=== PATIENT | female | born 1985 | race Two or more races ===

== ENCOUNTER 2025-01-09 21:47 | Emergency (ER) | payer MEDICARE, OTHER ==
[~2025-01-09] VITALS: Ht 165.1 cm; Wt 111.4 kg
[2025-01-09 21:51] VITALS: TEMP 97.8
[2025-01-09 22:18] LABS: URINE HCG POSITIVE (NEG)
[2025-01-09 22:20] LABS: MEAN PLATELET VOLUME 7.6 FL (7.4-10.4); RED CELL DISTRIBUTION WIDTH 16.3 % (11.5-14.5)
[2025-01-09 22:22] LABS: LEUKOCYTE ESTERASE ,URINE NEGATIVE (Neg); NITRITES, URINE NEGATIVE (Neg); OCCULT BLOOD,URINE NEGATIVE (Neg)
[2025-01-09 22:27] LABS: UA COLLECTION TYPE CLN CATCH MIDSTREAM
[2025-01-09 22:30] LABS: SQUAMOUS EPITHELIAL CELL,UR FEW /LPF (FEW)
[2025-01-09 22:31] LABS: CREATININE 0.66 MG/DL (0.40-0.90); TOTAL CARBON DIOXIDE 23.3 MMOL/L (24-32); eCRCL 103 ML/MIN; eGFR > 90 ML/MIN
--- NOTE | 2025-01-10 00:28 | Physician Documentation ---
History of Present Illness Chief Complaint: Abdominal Pain Stated Complaint: COMPLICATIONS Time Seen by MD: 23:23 Mode of Arrival: POV, Ambulatory HPI 39-year-old female, who estimates she is 9 weeks , presenting with left lower abdominal pain She tells me she is about 9 weeks . She has not had an ultrasound yet. Over the past several days or more, she has been having some pain in her left lower abdomen. She states it is sharp and intermittent. She wonders if it could be related to the . This is her 1st . No fevers, chills, nausea, vomiting, upper abdominal pain, dysuria, hematuria, vaginal bleeding, diarrhea, constipation, or other associated symptoms She is taking a vitamin Medication Reconciliation Allergies: Coded Allergies: Penicillins (Verified Allergy, Mild, 01/09/25) codeine (Verified Allergy, Mild, 01/09/25) morphine (Verified Allergy, Mild, 01/09/25) Review of Systems Constitutional: Denies: fever Gastrointestinal: Reports: abdominal pain; Denies: vomiting, diarrhea, rectal bleeding Genitourinary: Denies: dysuria Physical Exam Vital Signs: Temperature: 97.8, Source: Temporal, Heart Rate: 97, Respiratory Rate: 16, BP: 171/124, Pulse Oximetry: 98, Weight: 111.400 Physical Exam General: This is a very pleasant and mildly anxious appearing young female, not in distress HEENT: Atraumatic, oropharynx is moist Heart: Regular rate and rhythm, normal-appearing peripheral perfusion Lungs: normal work of breathing, normal oxygen saturation on room air Abdomen: Soft, nondistended, no reaction to deep palpation in all quadrants, no rebound or guarding, I am unable to reproduce her pain Neuro: Alert and oriented Psychiatric: Mildly anxious but is cooperative with exam Progress Results/Orders Results/Orders Orders - MAXINE SALDAÑA MD US OB (01/09/25 22:45) Ultrasound Pelvis W/Orwo Dplx (01/09/25 22:45) Completed Orders - MAXINE SALDAÑA MD Hcg, Ur Ql (01/09/25 22:00) Cbc/Diff (01/09/25 22:00) BMP (01/09/25 22:00) Lipase (01/09/25 22:00) CMP (01/09/25 22:00) Ua W/Microscopic, Cult If Ind (01/09/25 22:04) Vital Signs 01/09/25 01/09/25 21:51 23:00 Temp 97.8 Pulse 97 Resp 16 16 B/P (MAP) 171/124 Pulse Ox 98 Laboratory Tests Test 01/09/25 22:04 01/09/25 22:10 Urine Specimen Description Cln catch midstream Urine Color Straw Urine Clarity Clear Urine pH 6.5 Urine Specific [place] 1.020 Urine Protein Negative Urine Glucose (UA) >=1000 H Urine Ketones Trace H Urine Occult Blood Negative Urine Nitrite Negative Urine Bilirubin Negative Urine Urobilinogen 0.2 Urine Leukocyte Esterase Negative Urine RBC 0-2 Urine WBC 0-4 Urine Squamous Epithelial Cells Few Urine Bacteria 1+ Urine Culture Indicated Not ind Volume Urine Centrifuged 10 ml Urine HCG, Qualitative Positive Urine Comment White Blood Count 11.4 H Red Blood Count 4.71 Hemoglobin 12.4 Hematocrit 36.6 Mean Corpuscular Volume 77.8 L Mean Corpuscular Hemoglobin 26.4 L Mean Corpuscular Hemoglobin Concent 34.0 Red Cell Distribution Width 16.3 H Platelet Count 301 Mean Platelet Volume 7.6 Neutrophils (%) (Auto) 68.4 Lymphocytes (%) (Auto) 19.9 L Monocytes (%) (Auto) 6.1 Eosinophils (%) (Auto) 5.4 Basophils (%) (Auto) 0.2 Neutrophils # (Auto) 7.8 H Lymphocytes # (Auto) 2.3 Monocytes # (Auto) 0.7 Eosinophils # (Auto) 0.6 Basophils # (Auto) 0.0 CBC Comment Sodium Level 134 L Potassium Level 3.6 Chloride Level 102 Carbon Dioxide Level 23.3 L Anion Gap 9 Blood Urea Nitrogen 9 Creatinine 0.66 Estimated GFR/1.73 m2 > 90 BUN/Creatinine Ratio 13.6 Glucose Level 205 H Calcium Level 8.6 Total Bilirubin 0.3 Aspartate Amino Transf (AST/SGOT) 20 Alanine Aminotransferase (ALT/SGPT) 34 Alkaline Phosphatase 59 Total Protein 7.6 Albumin 3.1 L Globulin 4.5 H Albumin/Globulin Ratio 0.7 L Lipase 39 Chemistry Comments EKG/XRAY/CT/US/VASC/MRI Ultrasound : Impression Ob ultrasound: Intrauterine , 9 weeks 5 days, heart rate 180, no pelvic free fluid, normal blood flow to both ovaries Medical Decision Making Additional information obtaine: N/A Findings na Differential Dx:Considerations: -Incomplete, -Threatened, Abruptio placentae, Constipation, Ovarian cyst/torsion, Urinary tract infection Additional Comments The patient presents with left lower abdominal pain in the setting of early . On exam she has no reproducible tenderness on palpation and no peritoneal findings. She has no other infectious type symptoms. Her laboratory testing is unremarkable, no evidence of UTI. Ob ultrasound shows a normal- appearing , without complication, no ectopic , no ovarian torsion or evidence of pelvic bleeding. No dangerous cause identified for her symptoms. She was reassured, and given return precautions if she does develop worsening pain or other associated symptoms. Otherwise she will follow up in the OB clinic as planned Departure Time of Disposition: 00:28 Disposition: 01 HOME / SELF CARE / HOMELESS Impression: Primary Impression: Abdominal pain Additional Impression: Condition: Stable Discharge Instructions: Abdominal Pain During Referrals: NO PRIMARY CARE PROVIDER (PCP) Education Educated: Patient Educated regarding: diagnosis, need for follow up Signature Scribe Signature: na Attestation: MAXINE Ansari MD Jan 10, 2025 00:28
[2025-01-10 00:35] VITALS: BP 168/99; PULSE 88; RESP 16; O2SAT 98
--- NOTE | 2025-01-10 01:19 | RADIOLOGY REPORT ---
EXAM: US US OB HISTORY: 9 weeks , pelvic pain TECHNIQUE: Multiple real-time grayscale images of the gravid uterus with duplex Doppler color flow and M-mode spectral analysis. COMPARISON: None FINDINGS: There is a single live intrauterine . cardiac activity was identified with heart rate of 180 bpm. Gestational sac: 4.23 cm - 9 weeks 4 days [place] rump length: 3.0 cm - 9 weeks 6 days. Average gestational age : 9 weeks 5 days TIA: 08/09/25 Right ovary measures approximately 3.2 x 2 x 2.2 cm and contains a small 13 mm cyst. Left ovary measures approximately 3.4 x 2.1 x 2.1 cm and appears unremarkable. No evidence of pelvic mass or fluid collection. IMPRESSION: Single live intrauterine with estimated gestational age of 9 weeks 5 days.
== END 2025-01-10 00:37 | disposition home or self-care (01) ==
LOC: ER 21:48
DX: O26.891 Other specified pregnancy related conditions, first trimester (principal); R10.32 Left lower quadrant pain; Z88.0 Allergy status to penicillin; Z88.5 Allergy status to narcotic agent; Z3A.09 9 weeks gestation of pregnancy
CPT/HCPCS: 36415; 76801; 80053; 81001; 81025; 83690; 85025; 99284